=== PATIENT | male | born 1980 | race Caucasian/White ===

== ENCOUNTER → 2018-11-07 | Outpatient (CLI) | payer BC ==
--- NOTE | 2018-11-07 10:51 | Diagnostic Imaging Report ---
INDICATION: Left shoulder pain FINDINGS: AP, transscapular and axillary views of the left shoulder reveal no acute fracture or dislocation. There is inferior spurring at the glenohumeral joint. There is no abnormal lytic or sclerotic focus. 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 Dictated by: Dictated on workstation # [id number]
== END ==
LOC: RAD FS 10:27
PROVIDERS: ATTEND Nurse Practitioner
DX: M19.012 Primary osteoarthritis, left shoulder (principal)
CPT/HCPCS: 73030